=== PATIENT | male | born 1985 | race African-American/Black ===

== ENCOUNTER 2017-01-03 18:03 | Emergency (ER) | payer SELFPAY ==
[~2017-01-03] VITALS: Ht 175.3 cm; Wt 64.0 kg
[2017-01-03 18:10] VITALS: BP 119/73
[2017-01-03] MEDS ORDERED: EMTR1TAB12 PO (18:20)
[2017-01-03] MEDS ORDERED: DARU1TAB PO (18:20)
[2017-01-03] MEDS ORDERED: AMOX500C PO (18:47)
--- NOTE | 2017-01-03 18:47 | PHYS DOC ---
Past Medical History Past Medical History: HIV Past Surgical History: Other Additional Past Surgical Histo: hernia repair Additional Information: 1 ppd Alcohol Use: None Drug Use: Marijuana Social History Narrative: daily use Adult General Chief Complaint Chief Complaint: SORE THROAT HPI HPI 31-year-old gentleman presenting to the emergency department with a sore throat. He has a history of HIV. He reports undetectable viral loads and does not remember his CD4 count but remembers that is an within normal limits. His sore throat is been present for 2 days. It is a burning pain that is nonradiating moderate worse with eating and without alleviating factors. He denies tongue swelling drooling difficulty swallowing or stridor. Review of systems is negative for chest pain fevers chills. Negative for nausea vomiting. All other review of systems is negative unless otherwise noted in history of present illness. ED course: 31-year-old HIV positive patient present to the emergency department with sore throat. He was found to be strep positive. He was given amoxicillin and subsequently discharged home to follow-up with his PCP in 2-3 days. The patient was then discharged home in stable condition to follow up with their primary care physician over the next 2-3 days. They were to return if their symptoms worsened or if they were concerned for any reason. [id number] discharge instructions and return precautions were given. Patient's questions were answered to their satisfaction. Patient is comfortable plan. Review of Systems Review of Systems SEE ABOVE. Allergies Allergies Allergies Coded Allergies Type Severity Reaction Last Updated Verified No Known Drug Allergies 01/03/17 No Physical Exam Physical Exam SEE ABOVE Constitutional: Well developed, well nourished, no acute distress, non-toxic appearance. [] HENT: Normocephalic, atraumatic, bilateral external ears normal, patient has mild erythema of the pharynx and tonsils. No peritonsillar abscess present. Normal range of motion of the neck. Mild anterior lymphadenopathy present. Nose normal. [] Eyes: PERRLA, EOMI, conjunctiva normal, no discharge. [] Neck: Normal range of motion, supple, no stridor. [] Cardiovascular:Heart rate regular rhythm, no murmur [] Lungs & Thorax: Bilateral breath sounds clear to auscultation [] Abdomen: Bowel sounds normal, soft, no tenderness, no masses, no pulsatile masses. [] Skin: Warm, dry, no erythema, no rash. [] Back: No tenderness, no CVA tenderness. [] Extremities: No tenderness, no cyanosis, no clubbing, ROM intact, no edema. [] Neurologic: Alert and oriented X 3, normal motor function, normal sensory function, no focal deficits noted. [] Psychologic: Affect normal, judgement normal, mood normal. [] Current Patient Data Vital Signs Vital Signs Date Time Temp Pulse Resp B/P (MAP) Pulse Ox O2 Delivery O2 Flow Rate FiO2 01/03/17 18:10 99.5 80 18 98 Room Air 99.5 EKG EKG [] Radiology/Procedures Radiology/Procedures [] Course & Med Decision Making Course & Med Decision Making Pertinent Labs and Imaging studies reviewed. (See chart for details) [] Dragon Disclaimer Dragon Disclaimer This electronic medical record was generated, in whole or in part, using a voice recognition dictation system. Departure Departure Impression: Primary Impression: Strep throat Disposition: HOME, SELF-CARE Condition: STABLE Referrals: NORI OLSON MD, MICHAEL R MD Patient Instructions: Strep Throat, Group A Streptococcus Additional Instructions: Thank you for allowing us to participate in your care today. Followup with your primary care physician in 3 days if your symptoms do not improve. Call your Primary Doctor tomorrow and inform them of your visit today. If you do not have a primary care provider you can ask for a list of our primary care providers. Return to the emergency department you have any new or concerning findings. This should be evaluated by the primary care physician and any necessary consulting services for continued management within a few days after discharge. Return to emergency room if you have any new or concerning symptoms including but not limited to fever, chills, nausea, vomiting, intractable pain, any new rashes, chest pain, shortness of air, uncontrolled bleeding, difficulty breathing, and/or vision loss. Scripts Amoxicillin (AMOXICILLIN) 500 Mg Capsule 1 CAP PO BID, #[id number] CAP Prov: KIERAN SHETH MD 01/03/17 KIERAN SHETH MD Jan 03, 2017 18:47
[2017-01-04 10:03] LABS: NEGATIVE OBC STREP NEG; POSITIVE OBC STREP POS
== END 2017-01-03 18:54 | disposition home or self-care (01) ==
LOC: ER 18:03
DX: J02.0 Streptococcal pharyngitis (principal); F17.200 Nicotine dependence, unspecified, uncomplicated; F12.10 Cannabis abuse, uncomplicated; Z21 Asymptomatic human immunodeficiency virus [HIV] infection status
CPT/HCPCS: 87880; 99283